=== PATIENT | male | born 1965 | race Two or more races ===

== ENCOUNTER 2020-09-01 13:20 | Outpatient (REF) | payer OTHER, SELFPAY | END 2020-09-01 13:21 | disposition home or self-care (01) | LOC: HO.LAB 13:20 | PROVIDERS: Visit Provider Internal Medicine | DX: Z20.822 Contact with and (suspected) exposure to COVID-19 (principal) | CPT/HCPCS: 36415; C9803; U0003 ==

== ENCOUNTER 2020-10-13 13:19 | Outpatient (REF) | payer OTHER, SELFPAY | END 2020-10-13 13:20 | disposition home or self-care (01) | LOC: HO.LAB 13:19 | PROVIDERS: Visit Provider Internal Medicine | DX: Z20.822 Contact with and (suspected) exposure to COVID-19 (principal) | CPT/HCPCS: 36415; C9803; U0003; U0005 ==